=== PATIENT | male | born 1980 | race African-American/Black ===

== ENCOUNTER 2019-12-15 02:52 | Emergency (ER) | payer SELFPAY ==
[~2019-12-15] VITALS: Ht 177.8 cm; Wt 54.9 kg
[2019-12-15 02:52] VITALS: BP 128/73
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
--- NOTE | 2019-12-15 05:51 | NUR ---
Patient discharged to home in stable condition. Written and verbal after care instructions given. Patient verbalizes understanding of instruction. Pt refused to sign discharge and homeless discharge.
== END 2019-12-15 05:54 | disposition home or self-care (01) ==
LOC: ER 02:54
DX: Z03.89 Encounter for observation for other suspected diseases and conditions ruled out (principal); G47.419 Narcolepsy without cataplexy; Z59.0 Homelessness